=== PATIENT | male | born 1950 | race Caucasian/White ===

== ENCOUNTER 2023-12-14 22:27 | Inpatient (IN) | payer MEDICARE, SELFPAY ==
[2023-12-14 18:56] VITALS: BMI 30.2
[2023-12-14 19:12] LABS: % Basophils 0.2 % (0-2); % Eosinophils 0.7 % (0-6); % Immature Granulocytes 0.3 % (0-0.5); % Lymphocytes 25.8 % (20.5-51.1); % Monocytes 6.1 % (1.7-9.3); % Neutrophils 66.9 % (42.2-75.2); Absolute Eosinophils 0.1 10^3/uL (0-0.7); Absolute Lymphocytes 2.6 10^3/uL (1.2-3.4); Absolute Monocytes 0.6 10^3/uL (0.1-0.6); Absolute Neutrophils 6.8 10^3/uL (1.4-6.5); Hematocrit 47.8 % (39.0-52.0); Hemoglobin 16.5 g/dL (13.0-18.0); Mean Corp Hgb Conc. 34.5 g/dL (33.0-37.0); Mean Corpuscular Hgb 30.3 pg (27.0-31.0); Mean Corpuscular Volume 87.7 fL (80.0-94.0); Mean Platelet Volume 10.6 fL (7.4-10.4); Nucleated Red Blood Cells % 0 % (-); Platelet Count 232 10^3/uL (130-400); Red Blood Cell Count 5.45 10^6/uL (4.70-6.10); White Blood Cell Count 10.1 10^3/uL (4.8-10.8)
--- NOTE | 2023-12-14 19:13 | ED.CVA ---
History of Present Illness
General
Chief Complaint: CVA/TIA Symptoms
Source: patient
Exam Limitations: none
Time Seen by Provider: 12/14/23 19:02
Onset of Stroke Symptoms
Onset of symptoms known: Yes
Date of onset of symptoms: 12/10/23
Time of onset of symptoms: 12:00
Time pt last seen normal is known: Yes
Date last time pt seen normal: 12/10/23
Time last time pt seen normal: 11:59
Travel History
Have you had any contact with someone who has COVID-19?: No
Do you have any symptoms of coronavirus? Fever > 100 degrees, chills, cough, shortness of breath, sore throat, loss of taste or smell, muscle aches, or headache?: No
History of Present Illness
History of Present Illness:
This is a 73 year old male that comes in with c/o stroke like symptoms. States that he was in [place] and on Monday he started with some very mild symptoms of difficulty walking on the left side. States that on Monday he really started to have a hard
time walking across the street and this continued all day. States that he went to the doctor in [place] and he gave him a Vit B shot but there no imaging done. States that he was told to come back but instead today they just came home and he came
straight from the airport. States that his left side just feels weaker. Denies any fever, chills, chest pain, SOB, abd pain, nausea, vomiting, diarrhea, headache, dizziness, urinary burning.
Past History
Past History
ED Past Medical History: Psychiatric (Anxiety, Depression) and Other (Headaches, Trigeminal neuralgia, chronic cough, PNA, ); Negative Asthma, HTN, Hypercholesterolemia or NIDDM
ED Past Surgical History: None
Social History
Tobacco: Former smoker
Alcohol: Daily (Wine 1-2 glasses)
Personal:
Living: with family
Review of Systems
Review of Systems
All Other Systems: ROS reviewed and negative except as documented in HPI and ROS
Constitutional: Reports no symptoms; Denies fever or chills
EENT: Reports no symptoms
Respiratory: Reports no symptoms; Denies cough or trouble breathing
Cardiac: Reports no symptoms; Denies chest pain
ABD/GI: Reports no symptoms; Denies abdominal pain, nausea, vomiting or diarrhea
: Reports no symptoms; Denies dysuria, frequency or urgency
Musculoskeletal: Reports other (Left sided weakness)
Skin: Reports no symptoms
Neurological: Reports other (left sided weakness); Denies dizzy or headache
Psychiatric: Reports no symptoms
Phy Exam
General Physical Exam
General Presentation: well appearing and no apparent distress
General age: appears stated age
General Skin: warm and dry
General Habitus: normal
General Mental: alert
General Hydration: appears well hydrated
ENT Exam
ENT Exam: pharynx normal and neck supple
Eye Exam
Eye Exam: PERRL and EOMI
Cardiovascular Exam
Cardiovascular Exam: regular rate/rhythm, no edema, no murmur and normal peripheral pulses
Pulmonary Exam
Pulmonary Exam: lungs clear, no respiratory distress, no rales, chest non tender, no crackles, no rhonchi, no wheezing and no cough
Gastrointestinal Exam
Gastrointestinal Exam: normal bowel sounds, non tender, soft, no organomegaly, no pulsatile mass and non distended
NIH Stroke Score
Level of Consciousness: 0 - Alert
LOC questions: 0-Answers both correctly
LOC Commands: 0-Performs both correctly
Best Gaze: 0-Normal
Visual Brady: 0=Normal, no visual loss
Facial palsy: 0=Normal, symmetrical
Motor - Right Arm: 0=No drift 10 seconds
Motor - Left Arm: 1=Drift < 10 seconds (Very slight)
Motor - Right Le-No drift 5 seconds
Motor - Left Le-Drift < 5 seconds (Very slight)
Limb Ataxia: 2-Present in two limbs (Left arm and leg)
Sensation: 0-Normal
Best Language: 0-No aphasia
Dysarthria: 0-Normal
Extinction and Inattention: 0-No abnormality
Total Score:: 4
Musculoskeletal Exam
Musculoskeletal Exam: full ROM, no edema and other (Push pulls with left sided weakness, Hand grasp equal)
Skin Exam
Skin Exam: normal color, warm/dry, no rash and no petechia
Psychiatric Exam
Psychiatric Exam: normal mood/affect
Course
Orders/Labs/Results
Orders:
Orders
12/14/23 19:00
Electrocardiogram (*1) Urgent
Reason for Study: Other
Other Reason for Exam: Possible Stroke
CT Head W/o Iv Contrast Urgent
Comment:
Reason For Exam: cva? 12/10/23
Bedside Glucose- Treatment ONCE
EKG- Treatment ONCE
IV Insert/Care/Rem.- Treatment PRN
12/14/23 19:07
Complete Blood Count/With Diff Urgent
Comprehensive Metabolic Panel Urgent
PTT Urgent
Prothrombin Time Urgent
Troponin I Urgent
12/14/23 19:21
COVID-19 Antigen Urgent
Source: Nasal Swab
Abnormal Lab Results
12/14/23
19:07
MPV 10.6 H fL
(7.4-10.4)
Absolute Neuts (auto) 6.8 H 10^3/uL
(1.4-6.5)
Chloride 97 L mmol/L
(98-107)
BUN 30 H mg/dl
(9-20)
Glucose 136 H mg/dl
(70-99)
12/14/23 19:07
12/14/23 19:07
Dehydration. Glucose nonfasting. PT 13.0 with INR 0.98, PTT 25.5, Troponin <0.012, COVID negative.
Vital Signs
Initial and Last Documented VS:
Initial Vital Signs
Temp Pulse Resp BP Pulse Ox
97.8 F 59 18 132/73 99
12/14/23 19:28 12/14/23 19:28 12/14/23 19:28 12/14/23 19:28 12/14/23 19:28
Last Documented Vital Signs
Temp Pulse Resp BP Pulse Ox
97.8 F 59 18 132/73 99
12/14/23 19:28 12/14/23 19:28 12/14/23 19:28 12/14/23 19:28 12/14/23 19:28
MDM/Problems Addressed
Differential Diagnosis Includes:
CVA,
MDM/Problems Addressed:
This is a 73 year old male that comes in with c/o stroke like symptoms since Monday. Patient was in [place] and states that he started very slightly with symptoms on Monday. States that on Monday he felt like he couldn't walk across the street as he
had left sided leg weakness. Patient came here form the airport today.
Will get labs, CT head and admit patient.
Back into see patient. Explained that he would be admitted. His CT of the head is negative for any acute process and his blood work shows Dehydration. Patient is COVID negative. Explained to patient that the neurologist will see patient tomorrow and
they most likely will get MRI. Will consult Neurologist and have hospitalist admit.
Chronic conditions affecting care:
NA
Acute Exacerbation and/or Progression of Chronic Illness:
NA
*Radiology
Radiology exam reviewed: radiology read reviewed (CT head- No acute intracranial abnormality. )
*Police Booking Officer Interpretation
Rate: normal
Heart Rate: 61
Rhythm: sinus
*Critical Care Note
Total Time (30-74mins, 75-104mins- exclusive of procedures): Not Applicable
ED Attending Note
-
Portions of this chart may have been created with voice recognition software.� Occasional wrong word or��sound alike� substitutions may have occurred due to the inherent limitations of voice recognition software.
Discharge Plan
Departure
Patient Disposition: Admit
Date of Disposition: 12/14/23
Time of Disposition: 20:13
Admit to: Telemetry
Presentation/result/management discussed w/ accepting MD/DO: Hospitalist
Patient with high blood pressure during this ER visit?: Yes
Condition: Good
Covid-19: Negative COVID-19
Discharge Problem:
Stroke-like symptoms
Prescriptions:
No Action
aspirin 81 mg Tablet,Delayed Release (Dr/Ec)
81 mg PO .3X WEEKLY
levothyroxine [Synthroid] 100 mcg Tablet
100 mcg PO DAILY
ibuprofen 200 mg Tablet
400 mg PO ONCE
paroxetine HCl 40 mg Tablet
40 mg PO DAILY
Multivitamin 50 Plus Tablet
1 tab PO DAILY
omega 0-epz-nni-fish oil [Fish Oil] 1,000 mg (120 mg-180 mg) Capsule
2 cap PO DAILY
Metoprolol
100 mg PO DAILY
Patient Comments:
12/14/2023: Pt just came back from [place], medication from [place]. Labeled as Sermetrol (Metoprolol)
Res-Q
2 tab PO DAILY
Tiamina/Piridoxina/Cianocobala
1 tab PO DAILY
Patient Comments:
12/14/2023: Pt just came back from [place], medication from [place]
Rx Instructions:
Tiamina 100mg/Piridoxina 5mg/Cianocobalamina 0.05mg
Vitamin D + K
1 tab PO DAILY
Interventions
Interventions:
*Risk Screen - Suicide Last Done: 12/14/23 19:40
*General Assessment Last Done: 12/14/23 19:39
*Neglect/Abuse Screening Last Done: 12/14/23 19:40
ED- Fall Risk Assessment Last Done: 12/14/23 19:01
*ED COVID-19 Vaccine History Last Done: 12/14/23 19:01
ED- Pulmonary Assessment Last Done: 12/14/23 19:29
ED- Neurological Assessment Last Done: 12/14/23 19:38
ED- Cardiac Assessment Last Done: 12/14/23 19:29
ED Swallowing Screen Last Done: 12/14/23 19:29
[2023-12-14 19:25] LABS: INR 0.98
[2023-12-14 19:26] LABS: APTT 25.5 Sec (23.4-35.0)
[2023-12-14 19:28] VITALS: BP 132/73
[2023-12-14 19:37] LABS: ALT (SGPT) 33 U/L (0-50); AST (SGOT) 35 U/L (17-59); Albumin 3.9 g/dl (3.5-5.0); Alkaline Phosphatase 84 U/L (38-126); Blood Urea Nitrogen 30 mg/dl (9-20); Calcium 10.2 mg/dl (8.4-10.2); Carbon Dioxide 30 mmol/L (22-30); Chloride 97 mmol/L (98-107); Estimated Creatinine Clearance 57 ml/min; Glucose 136 mg/dl (70-99); Potassium 4.1 mmol/L (3.5-5.1); Sodium 136 mmol/L (135-145); Total Bilirubin 0.9 mg/dl (0.2-1.3); Total Protein 6.9 g/dl (6.3-8.2); Troponin I < 0.012 ng/ml; eGFR 57.29
[2023-12-14 19:47] LABS: COVID-19 Antigen Negative (Negative)
[2023-12-14] MEDS: NSS 1000 IV ×2 (20:20→23:56)
--- NOTE | 2023-12-14 21:23 | HPS.HSE ---
Family Physician
-
Family Physician: Deep Adam
Chief Complaint
-
left leg weakness and gait imbalance x monday
History of Present Illness
73yo M with PMH Anxiety/Depression, Hypothyroidism, Hx Diverticulitis, Hx Prostate Cancer s/p Resection (~2011), Hx Meningitis presents to ER with left sided weakness. Pt was in [place] on vacation. Noted around noontime monday that his left leg was
weak. Ignored it until it became more severe the following Monday. Isatu dizziness/LH/headaches. States he also at this time noticed milder left arm weakness. He tried to rest it off on monday. He does state about 6 months ago he used to take
aspirin daily but was told to decrease to 3x weekly. He saw a resort physician on monday whos simply told him to take the aspirin daily and also states he added some other medications which he cannot recall. He denies being told to get worked up
for a stroke. Denies fever, chills, dizziness/LH, CP, palps, wheezing, cough, abd pain, n/v/d/, dysuria, calf or leg pain. No other focal deficits/sensation changes.
ER course:Pt presents with VSS. BUN/Cr 30/1.3. CT brain (-). Admitted for stroke work up. ASA 324mg ordered.
Medical History
Past Medical History
Past Medical History: Reports Other (Anxiety/Depression, Hypothyroidism, Hx Diverticulitis, Hx Prostate Cancer s/p Resection (~2011), )
Past Surgical History: Reports Other (Prostate Resection (~2011), MOHSx3)
Social History
Tobacco: Former Smoker (Remote smoking up until age 30s, then very infrequent with golf. )
Alcohol: Occasional (socially)
Drug: None
Personal:
Living: With Family
Family History
Family History: Not pertinent (Mother of old age; Father age 70 of unknown cause 'dropped '; Brother also unknown cause for which autopsy demonstrated right carotid occlusion.)
Allergies / Home Medications
Allergies reflects when Allergies were last updated in [facility].
Home Medications with original date entered in [facility]
Allergy/Medication List:
Allergies
Allergy/AdvReac Type Severity Reaction Status Date / Time
acetaminophen [From Percocet] Allergy Unknown Verified 12/14/23 18:59
oxycodone [From Percocet] Allergy Unknown Verified 12/14/23 18:59
Home Medications
aspirin 81 mg tablet,delayed release 81 mg PO .3X WEEKLY 12/14/23
levothyroxine 100 mcg tablet (Synthroid) 100 mcg PO DAILY 12/14/23
yqbcidleuwry-ksbsnmwa-spikyx tablet (Multivitamin 50 Plus tablet) 1 tab PO DAILY 12/14/23
omega 7-vql-xmv-fish oil 1,000 mg (120 mg-180 mg) capsule (Fish Oil) 2 cap PO DAILY 12/14/23
paroxetine HCl 40 mg tablet 40 mg PO DAILY 12/14/23
Review of Systems
-
A 12 point ROS was completed and negative except as noted: Yes
Physical Exam
Vital Signs
Vital Signs
Temp Pulse Resp BP Pulse Ox
97.8 F 59 18 132/73 99
12/14/23 19:28 12/14/23 19:28 12/14/23 19:28 12/14/23 19:28 12/14/23 19:28
Physical Exam
General: Well Developed, Well Nourished and No Apparent Distress
HEENT: NormoCephalic, Moist mucous membranes and Atraumatic
Respiratory: Clear
Cardiac: S1/S2 and Regular Rhythm; No Murmur or Rub
GI: Soft, Non Tender, Non Distended and Normal Bowel Sounds; No Organomegaly
Rectal: Deferred by Provider
Genito-urinary: No costovertebral tender; No Colvin
Musculoskeletal: No Clubbing, No Cyanosis and No Edema
Skin: No Rash
Neuro: Awake, Alert, Oriented, AO x 3, Cranial Nerves Intact, No Sensory Deficits and Other (LLE weakness 3/5. LUE weakness 4/5. Otherwise 5/5 throughout. Left sided ataxia. Impaired left finger to nose. Impaired left heel to logan. ); No Slurred
Speech, Facial Droop or Tremors
Hematologic/Lymphatic: No Lymphadenopathy
Psych: Calm and Intact Judgment/Insight
Laboratory Results
-
12/14/23 19:07
12/14/23 19:07
Laboratory Results
PT 13.0 Sec (11.4-14.6) 12/14/23 19:07
INR 0.98 12/14/23 19:07
APTT 25.5 Sec (23.4-35.0) 12/14/23 19:07
Total Bilirubin 0.9 mg/dl (0.2-1.3) 12/14/23 19:07
AST 35 U/L (17-59) 12/14/23 19:07
ALT 33 U/L (0-50) 12/14/23 19:07
Alkaline Phosphatase 84 U/L (38-126) 12/14/23 19:07
Troponin I < 0.012 ng/ml 12/14/23 19:07
Data Reviewed
-
Diagnostic Radiology: Image Personally Visualized and interpreted
CT Scan: Image Personally Visualized and interpreted
Lab Data: Labs Reviewed by me
Impression/Plan
-
Left Sided Weakness
- LLE 3/5>LUE 4/5 weakness since Monday ~ 12pm. Left sided ataxia present on exam
- CT brain (-). Outside stroke alert/tPA window.
- Order ASA 324mg and increase ASA 81mg to daily.
- Check Lipids/A1C. Check TSH/B12/UA for completeness.
- Continue IVF as below
- Q4h neurochecks. Permissive HTN.
- MRI/MRA studies. Obtain TTE
- PT/OT consult. Neuro consult.
Prerenal Azotemia - BUN/Cr 30/1.3 with no prior baselines. Suspect mild dehydration following vacation. S/P 1LNS in ER. Continue NS @ 80cc/hr. Check orthostatics. Repeat BMP in AM.
Urine Incontinence - Pt had incontinence episode waiting for nurse to unhook him from monitors in ER. Will check UA for completeness, low suspicion for infectious causes for #1.
Anxiety and Depression - stable on home paroxetine.
Hypothyroidism - Continue home synthroid, check TSH.
Diet: Regular
Code Status: Full
PPx: Lovenox
[2023-12-14 23:30] VITALS: BP 104/60; BMI 29.4
[2023-12-14 23:42] VITALS: BP 104/60; BP 117/61; BP 122/62; PULSE 54; PULSE 56; PULSE 57
[2023-12-14] MEDS: LIPITOR 40 MG PO (23:56)
[2023-12-14] MEDS: ASPIRIN 325 MG PO (23:56)
[2023-12-15] MEDS: MAGNESIUM OXIDE 500 MG PO (00:27)
[2023-12-15 00:58] LABS: Urine Albumin Negative (Neg - Trace); Urine Bilirubin Negative (Negative); Urine Character Clear (Clear); Urine Color Yellow; Urine Glucose Negative (Negative); Urine Ketone Negative (Negative); Urine Leukocyte Negative (Negative); Urine Nitrite Negative (Negative); Urine Occult Blood Negative (Negative); Urine Specific Gravity 1.015 (<1.030); Urine Urobilinogen Negative (Neg - 1+)
[2023-12-15 03:35] VITALS: BP 114/66
--- NOTE | 2023-12-15 04:36 | PTCARENOTE ---
Pt admitted to 3W @ 2330. Pt walked from WC to bed w/ x1 assist. L sided weakness present. Pt aaox3, VSS, and no c/o pain. NIH is a 3 (see worklist). Pt placed on tele #15, NSR. Pt oriented to room, call bhagat within reach, and will continue plan of
care.
[2023-12-15 05:39] LABS: Hematocrit 46.8 % (39.0-52.0); Hemoglobin 16.1 g/dL (13.0-18.0); Mean Corp Hgb Conc. 34.4 g/dL (33.0-37.0); Mean Corpuscular Hgb 30.5 pg (27.0-31.0); Mean Corpuscular Volume 88.6 fL (80.0-94.0); Mean Platelet Volume 11.1 fL (7.4-10.4); Platelet Count 195 10^3/uL (130-400); Red Blood Cell Count 5.28 10^6/uL (4.70-6.10); Red Cell Dist. Width 12.9 % (11.5-14.5); White Blood Cell Count 7.6 10^3/uL (4.8-10.8)
[2023-12-15 06:01] LABS: Blood Urea Nitrogen 23 mg/dl (9-20); Calcium 9.3 mg/dl (8.4-10.2); Carbon Dioxide 25 mmol/L (22-30); Chloride 108 mmol/L (98-107); Estimated Creatinine Clearance 66 ml/min; Glucose 92 mg/dl (70-99); HDL Cholesterol 47 mg/dl; LDL Cholesterol, Calculated 114 mg/dl; Potassium 4.5 mmol/L (3.5-5.1); Sodium 138 mmol/L (135-145); Total Cholesterol 188 mg/dl (50-199); Triglyceride 137 mg/dl (10-149); Very Low Density Lipoprotein 27 mg/dl (0-30); eGFR > 60.00
[2023-12-15] MEDS: SYNTHROID 100 MCG PO (06:31)
[2023-12-15 06:49] LABS: Vitamin B12 > 1000 pg/ml (239-931)
[2023-12-15 07:33] VITALS: BP 112/56
[2023-12-15] MEDS: THERAGRAN 1 TABLET PO (07:47)
[2023-12-15] MEDS: PAXIL 40 MG PO (07:47)
[2023-12-15] MEDS: ASPIR LOW (ENTERIC COATED) 81 MG PO (07:47)
--- NOTE | 2023-12-15 07:54 | CON.NEURO ---
Consultation
Order
Date of Consultation: 12/15/23
Requesting Provider: Jaye De La Vega CRNP
Reason for Consult: stroke
CC: left arm clumsiness
HPI:This is a 73-year-old RH man who presented to [facility] on December 14, 2023 with left sided deficits. According to the patient he developed an acute incoordination in his left arm and leg that started on 12/10/2023 while
vacationing in [place]. No reports of sensory deficits, change in vision, speech, headache, vertigo, dysphagia or dyspnea.
\\Mr. Phillips has been taking ASA 81mg TIW prior the symptoms onset.
ER VS:112/56, HR 52-58, afebrile.
PDMP:no Rxed meds
Labs: Normal glucose, WBCs, LDL�114, TSH�11.5, negative SARS-COv-[address] head-unremarkable
PDMP: no Rxed meds
PMH: prostate CA, HTN, hypothyroidism, HUGO/MDD, diverticulosis
PSH: prostatectomy, Mohs's
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
FH: brother, father-acute
All: oxycodone
ROS:Constitutional: Negative. Negative for chills, fever and unexpected weight change.
HENT: Negative for ear pain, hearing loss, tinnitus and trouble swallowing.
Eyes: Negative. Negative for photophobia, pain and visual disturbance.
Respiratory: Negative for cough, choking and shortness of breath.
Cardiovascular: Negative for chest pain, palpitations and leg swelling.
Gastrointestinal: Negative for abdominal pain and vomiting.
Endocrine: Negative. Negative for cold intolerance.
Genitourinary: Negative for dysuria, flank pain and urgency.
Musculoskeletal: Negative for back pain, gait problem, neck pain and neck stiffness.
Skin: Negative for rash.
Allergic/Immunologic: Negative. Negative for immunocompromised state.
Neurological: Positive for left-sided ataxia
Psychiatric/Behavioral: Negative for behavioral problems, confusion and hallucinations.
General: Well developed. In no acute distress.
Cardio: Regular rate and rhythm without murmur. Extremities are without cyanosis or edema.
Neuro:
Mental Status: Alert, oriented to person, place, and date. Normal attention and recall. Good fund of knowledge. Follows complex requests across the midline. Comprehension, naming, and repetition intact. Immediate and delayed recall 3/3.
Cranial Nerves: . Pupils are equally round and reactive to light. EOMs full. Visual regan full to confrontation. No ptosis. No nystagmus. V1-V3 intact to light touch and pinprick bilaterally, symmetric. Face symmetric. Poor hearing AU. The
palate elevated well. SCMs and traps 5/5. Tongue midline. Min labial dysarthria.
Motor: Normal bulk and tone. No pronator or arm drift. Strength 5/5 throughout. No clonus.
Reflexes: 2+ throughout the upper extremities and knees. 2/2 in AJs. Plantar responses flexor bilaterally.
Sensory: Normal vibration and
Coordination: R dysmetria on FTN and heel to logan
Gait: deferred
Assessment and Plan:
I. Subacute left ataxic hemiparesis. Possible localization includes �robbie, internal capsule, thalamus or colbert radiata.
II. HTN
III.
-Continue Telemetry monitoring.
-TTE
-ASA 81 mg QD
-Plavix 75 mg QD for 21 days.
-Lipitor 40 mg QHS.
-PT.
-DVT prophylaxis.
I personally reviewed all radiology and labs along with past medical records pertinent to current medical problems. total time spent in patient care is 60 minutes.
Thank you for allowing us to participate in the care of this patient. We will continue to follow. Please do not hesitate to contact us with any questions or concerns.
Subjective/Objective
Subjective Data
Date of Service: December 15, 2023
Objective Data
Vital Signs
Temp Pulse Resp BP Pulse Ox
36.3 C 52 16 112/56 97
12/15/23 07:33 12/15/23 07:33 12/15/23 07:33 12/15/23 07:33 12/15/23 07:33
Lab Results
12/15/23 05:11
12/15/23 05:11
PT 13.0 Sec (11.4-14.6) 12/14/23 19:07
INR 0.98 12/14/23 19:07
APTT 25.5 Sec (23.4-35.0) 12/14/23 19:07
Sodium 138 mmol/L (135-145) 12/15/23 05:11
Potassium 4.5 mmol/L (3.5-5.1) 12/15/23 05:11
BUN 23 mg/dl (9-20) H 12/15/23 05:11
Glucose 92 mg/dl (70-99) 12/15/23 05:11
Calcium 9.3 mg/dl (8.4-10.2) 12/15/23 05:11
LDL Cholesterol, Calc 114 mg/dl 12/15/23 05:11
Vitamin B12 > 1000 pg/ml (239-931) H 12/15/23 05:11
Patient Allergies
acetaminophen [From Percocet] Allergy (Verified 12/14/23 18:59)
Unknown
oxycodone [From Percocet] Allergy (Verified 12/14/23 18:59)
Unknown
Medications
-
Active Medications
Generic Name Dose Route Start Last Admin
Trade Name Freq PRN Reason Stop Dose Admin
Aspirin 81 mg 12/15/23 08:00 12/15/23 07:47
Aspirin 81 Mg (Enteric Coated) Tablet PO 01/12/24 07:59 81 mg
DAILY IRAIDA Administration
Atorvastatin Calcium 40 mg 12/14/23 21:50 12/14/23 23:56
Atorvastatin (Lipitor) 40 Mg Tablet PO 01/11/24 21:49 40 mg
QPM IRAIDA Administration
Enoxaparin Sodium 40 mg 12/15/23 18:00
Enoxaparin Sodium 40 Mg/0.4 Ml Syringe SC 01/12/24 17:59
QPM IRAIDA
Sodium Chloride 1,000 mls @ 80 mls/hr 12/14/23 22:00 12/14/23 23:56
Nss IV 12/15/23 10:29 1,000 mls
.[id number] IRAIDA Administration
Levothyroxine Sodium 100 mcg 12/15/23 07:00 12/15/23 06:31
Levothyroxine 100 Mcg Tablet PO 01/12/24 06:59 100 mcg
DAILY@0700 IRAIDA Administration
Multivitamins Therapeutic 1 tablet 12/15/23 08:00 12/15/23 07:47
Multivitamin Tablet PO 01/12/24 07:59 1 tablet
DAILY IRAIDA Administration
Paroxetine HCl 40 mg 12/15/23 08:00 12/15/23 07:47
Paroxetine 20 Mg Tablet PO 01/12/24 07:59 40 mg
DAILY IRAIDA Administration
Sodium Chloride 0 flush 12/14/23 23:00
Sodium Chloride 0.9% (Flush) Syringe IV 01/11/24 22:59
PER PROTOCOL IRAIDA
Home Medications
Medication Instructions Recorded
aspirin 81 mg tablet,delayed 81 mg PO .3X WEEKLY 12/14/23
release
levothyroxine 100 mcg tablet 100 mcg PO DAILY 12/14/23
(Synthroid)
aasszcexufjz-emolurwr-wtcioo 1 tab PO DAILY 12/14/23
tablet (Multivitamin 50 Plus
tablet)
omega 7-rhk-nhp-fish oil 1,000 mg 2 cap PO DAILY 12/14/23
(120 mg-180 mg) capsule (Fish Oil)
paroxetine HCl 40 mg tablet 40 mg PO DAILY 12/14/23
Vital Signs and Labs
-
Vital Signs and Labs:
Vital Signs
Temp Pulse Resp BP Pulse Ox
36.3 C 52 16 112/56 97
12/15/23 07:33 12/15/23 07:33 12/15/23 07:33 12/15/23 07:33 12/15/23 07:33
Lab Results
12/15/23 05:11
12/15/23 05:11
PT 13.0 Sec (11.4-14.6) 12/14/23 19:07
INR 0.98 12/14/23 19:07
APTT 25.5 Sec (23.4-35.0) 12/14/23 19:07
Sodium 138 mmol/L (135-145) 12/15/23 05:11
Potassium 4.5 mmol/L (3.5-5.1) 12/15/23 05:11
BUN 23 mg/dl (9-20) H 12/15/23 05:11
Glucose 92 mg/dl (70-99) 12/15/23 05:11
Calcium 9.3 mg/dl (8.4-10.2) 12/15/23 05:11
LDL Cholesterol, Calc 114 mg/dl 12/15/23 05:11
Vitamin B12 > 1000 pg/ml (239-931) H 12/15/23 05:11
Home Medications
-
Home Medications
aspirin 81 mg tablet,delayed release 81 mg PO .3X WEEKLY 12/14/23
levothyroxine 100 mcg tablet (Synthroid) 100 mcg PO DAILY 12/14/23
xyjyffvnkocg-hgnygtcb-caonqh tablet (Multivitamin 50 Plus tablet) 1 tab PO DAILY 12/14/23
omega 6-hla-hxz-fish oil 1,000 mg (120 mg-180 mg) capsule (Fish Oil) 2 cap PO DAILY 12/14/23
paroxetine HCl 40 mg tablet 40 mg PO DAILY 12/14/23
Medications
-
Medications:
Generic Name Dose Route Start Last Admin
Trade Name Dave CULLENN Reason Stop Dose Admin
Aspirin 81 mg 12/15/23 08:00 12/15/23 07:47
Aspirin 81 Mg (Enteric Coated) Tablet PO 01/12/24 07:59 81 mg
DAILY IRAIDA Administration
Atorvastatin Calcium 40 mg 12/14/23 21:50 12/14/23 23:56
Atorvastatin (Lipitor) 40 Mg Tablet PO 01/11/24 21:49 40 mg
QPM IRAIDA Administration
Enoxaparin Sodium 40 mg 12/15/23 18:00
Enoxaparin Sodium 40 Mg/0.4 Ml Syringe SC 01/12/24 17:59
QPM IRAIDA
Sodium Chloride 1,000 mls @ 80 mls/hr 12/14/23 22:00 12/14/23 23:56
Nss IV 12/15/23 10:29 1,000 mls
.[id number] IRAIDA Administration
Levothyroxine Sodium 100 mcg 12/15/23 07:00 12/15/23 06:31
Levothyroxine 100 Mcg Tablet PO 01/12/24 06:59 100 mcg
DAILY@0700 IRAIDA Administration
Multivitamins Therapeutic 1 tablet 12/15/23 08:00 12/15/23 07:47
Multivitamin Tablet PO 01/12/24 07:59 1 tablet
DAILY IRAIDA Administration
Paroxetine HCl 40 mg 12/15/23 08:00 12/15/23 07:47
Paroxetine 20 Mg Tablet PO 01/12/24 07:59 40 mg
DAILY IRAIDA Administration
Sodium Chloride 0 flush 12/14/23 23:00
Sodium Chloride 0.9% (Flush) Syringe IV 01/11/24 22:59
PER PROTOCOL IRAIDA
[2023-12-15 09:18] LABS: Glycohemoglobin (HgbA1c) 5.5 % (4.0-5.6)
[2023-12-15 09:48] LABS: Free T4 0.99 ng/dl (0.78-2.19)
[2023-12-15] MEDS: PLAVIX 75 MG PO (11:56)
--- NOTE | 2023-12-15 13:40 | W.PN.HOSP.TC ---
Addendum entered and electronically signed by Marco Antonio Parra MD 12/16/23 15:43:
[id number]
Original Note:
Today's Communication/Plan
-
-ASA 81 mg QD
-Plavix 75 mg QD for 21 days.
-Lipitor 40 mg QHS.
-F/u Neurology outpatient
Assessment / Plan
Assessment / Plan
Physical Exam
General: Well Developed, Well Nourished and No Apparent Distress
HEENT: NormoCephalic, Moist mucous membranes and Atraumatic
Respiratory: Clear
Cardiac: S1/S2 and Regular Rhythm; No Murmur or Rub
GI: Soft, Non Tender, Non Distended and Normal Bowel Sounds; No Organomegaly
Rectal: Deferred by Provider
Genito-urinary: No costovertebral tender; No Colvin
Musculoskeletal: No Clubbing, No Cyanosis and No Edema
Skin: No Rash
Neuro: Awake, Alert, Oriented, AO x 3, Cranial Nerves Intact, No Sensory Deficits and Other (LLE weakness 3/5. LUE weakness 4/5. Otherwise 5/5 throughout. Left sided ataxia. Impaired left finger to nose. Impaired left heel to logan. ); No Slurred
Speech, Facial Droop or Tremors
Hematologic/Lymphatic: No Lymphadenopathy
Psych: Calm and Intact Judgment/Insight
#Subacute left ataxic hemiparesis
#Left Sided Weakness
- LLE 3/5>LUE 4/5 weakness since Monday ~ 12pm. Left sided ataxia present on exam
- CT brain (-). Outside stroke alert/tPA window.
- acute nonhemorrhagic infarct in the right side of the robbie. No significant adjacent edema. 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
-TTE - no significant valvular disease, normal EF
-ASA 81 mg QD
-Plavix 75 mg QD for 21 days.
-Lipitor 40 mg QHS.
-PT
More than 30 minutes spent in discharge including
Final examination of the patient
Summarizing hospital stay
Instructions for continuing care to all relevant caregivers
Preparation of discharge records, prescriptions, and referral forms
Total time spent (35 in minutes):
Anticipated Discharge: Today
Subjective/Interval History
-
Date of Service: December 15, 2023
no acute events,. mri positive for cva
Objective Data
-
Labs:
Laboratory Results
12/15/23
05:11
WBC 7.6
Hgb 16.1
Hct 46.8
Plt Count 195
Sodium 138
Potassium 4.5
Chloride 108 H
Carbon Dioxide 25
BUN 23 H
Creatinine 1.1
Glucose 92
Calcium 9.3
Vital Signs:
Vital Signs
Temp Pulse Resp BP Pulse Ox
97.4 F 52 16 112/56 97
12/15/23 07:33 12/15/23 07:33 12/15/23 07:33 12/15/23 07:33 12/15/23 10:02
I&O
12/14/23 12/15/23 12/16/23
06:59 06:59 06:59
Intake Total 685 / 685
Output Total 300 / 300
Balance 385 / 385
Review of Systems
-
History Source: Patient
All other systems: Not reviewed unless documented
Data Reviewed
-
CT Scan: Image personally visualized and interpreted and Report Reviewed by me
MRI: Image personally visualized and interpreted and Report Reviewed by me
Labs: Labs Reviewed by me
--- NOTE | 2023-12-15 13:44 | W.DS.TRANS ---
Addendum entered and electronically signed by Marco Antonio Parra MD 12/15/23 13:46:
changes to home meds: yes - see below
Original Note:
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
-
Discharge Instructions:
Discharge Diagnosis/Procedures CVA
Diet Low Fat,Low Cholesterol
Activity As tolerated
Instructions:
Stand-Alone Forms:
Changes to Home Medications: No
Discharge Medications:
DC Medications w/original date entered in appAttach
levothyroxine 100 mcg tablet (Synthroid) 100 mcg PO DAILY 12/14/23
fswwbjxkiwqk-wmgzvujs-bzborp tablet (Multivitamin 50 Plus tablet) 1 tab PO DAILY 12/14/23
omega 5-fuq-feu-fish oil 1,000 mg (120 mg-180 mg) capsule (Fish Oil) 2 cap PO DAILY 12/14/23
paroxetine HCl 40 mg tablet 40 mg PO DAILY 12/14/23
aspirin 81 mg tablet,delayed release 81 mg PO DAILY 30 days #30 tabs 12/15/23
atorvastatin 40 mg tablet 40 mg PO QPM 30 days #30 tabs 12/15/23
clopidogrel 75 mg tablet 75 mg PO DAILY 20 days #20 tabs 12/15/23
Home Medication Changes
aspirin 81 mg tablet,delayed release 81 mg PO DAILY 30 days #30 tabs 12/15/23
atorvastatin 40 mg tablet 40 mg PO QPM 30 days #30 tabs 12/15/23
clopidogrel 75 mg tablet 75 mg PO DAILY 20 days #20 tabs 12/15/23
Pending Results: No
--- NOTE | 2023-12-15 14:04 | CM ---
Alert awake oriented patient who lives with his Marisa who lives in a 2 story home with 3 step to enter and bed and bathroom on first floor. He is independent in driving and in all activities of daily living.He was offered VN he declined
need.He said he would set up out pt PT on his own. can drive him home.
No VN/SNF history
Pharmacy [facility]
PCP DR Adam
PLAN Home Declined VN
[2023-12-15 14:53] VITALS: BP 110/53
== END 2023-12-15 16:25 | disposition home or self-care (01) | DRG 65 ==
LOC: 3 WEST ACU 22:27
PROVIDERS: Clinical Nurse Specialist Family Health; Emergency Medicine; ADMITTING PHYSICIAN Internal Medicine; ATTENDING PHYSICIAN Internal Medicine; CONSULT PHYSICIAN Psychiatry & Neurology Neurology; EMERGENCY PHYSICIAN Emergency Medicine; FAMILY PHYSICIAN Family Medicine
DX: I63.9 Cerebral infarction, unspecified (principal); G81.94 Hemiplegia, unspecified affecting left nondominant side; F41.9 Anxiety disorder, unspecified; E03.9 Hypothyroidism, unspecified; Z85.46 Personal history of malignant neoplasm of prostate; Z86.61 Personal history of infections of the central nervous system; Z79.82 Long term (current) use of aspirin; Z87.891 Personal history of nicotine dependence
CPT/HCPCS: 70450; 70544; 70548; 70551; 80048; 80053; 80061; 81003; 82607; 83036; 84439; 84443; 84484; 85025; 85027; 85610; 85730; 87811; 93005; 93306; 96360; 97162; 97166; 99285